=== PATIENT | male | born 1950 | race Caucasian/White ===

== ENCOUNTER → 2018-03-23 | Outpatient (CLI) | payer MEDICARE, OTHER ==
--- NOTE | 2018-03-26 13:59 | US ---
EXAMINATION TYPE: US bladder DATE OF EXAM: 03/23/2018 COMPARISON: NONE CLINICAL HISTORY: R35.1 NOCTURIA. EXAM MEASUREMENTS: Post Void Residual Volume: 10.1 mL Color Doppler performed to assess ureteral jets. Bilateral Jets seen: no Normal Post Void Residual (less than 50ml): yes IMPRESSION: Post void residual is within normal limits.
== END | disposition home or self-care (01) ==
LOC: RADUSWWP 08:50
PROVIDERS: ATTEND Family Medicine
DX: R35.1 Nocturia (principal)
CPT/HCPCS: 76857

== ENCOUNTER 2020-04-24 08:48 | Day surgery (SDC) | payer MEDICARE, OTHER ==
[2020-04-22 14:39] VITALS: BMI 30.4
[~2020-04-24 08:48] MED LIST: LACTATED RINGERS 1,000 ML IV SCH
[2020-04-24 09:27] VITALS: TEMP 98
[2020-04-24] MEDS ORDERED: PROPOFOL 10 MG/ML 20 ML VIAL IV ONE (09:45)
[2020-04-24] MEDS ORDERED: LIDOCAINE 1% INJ 10MG/ML (20 ML MDV) ONE (09:45)
--- NOTE | 2020-04-24 10:02 | P.PCN ---
Date of Procedure: 04/24/20 Procedure(s) Performed: BRIEF HISTORY: Patient is a 68-year-old pleasant white male scheduled for an elective colonoscopy as a part of evaluation of prior history of colon polyps. Last colonoscopy was done in [address] Kelly and was noted to have a tubular adenoma. PROCEDURE PERFORMED: Colonoscopy with biopsy PREOPERATIVE DIAGNOSIS: History of colon polyps. IV sedation per Anesthesia. PROCEDURE: After informed consent was obtained, the patient, was brought into the endoscopy unit. IV sedation was administered by Anesthesia under continuous monitoring. Digital rectal examination was normal. Initially the Olympus CF-160 flexible video colonoscope was then inserted in the rectum, gradually advanced into the cecum without any difficulty. Careful examination was performed as the scope was gradually being withdrawn. Ileocecal valve and the appendiceal orifice were visualized and appeared normal. Prep was excellent. Mucosa of the cecum, ascending colon, transverse colon, descending colon, sigmoid colon, appeared normal. In the mid rectum at 10 cm from the anal verge there was a 3 cm po lypoid ulcerated mass suspicious for neoplasm, status post multiple biopsies. Retroflexion was performed in the rectum and no lesions were seen. The patient tolerated the procedure well. IMPRESSION: 3 cm polypoid ulcerated mass in the midrectum at 10 cm from the anal verge suspicious for neoplasm status post multiple biopsies Scattered left sided diverticulosis RECOMMENDATIONS: Findings of this examination were discussed with the patient as well as his family. He was advised to follow with the biopsy results. He'll be seen in office. In the meantime he'll be set up for a CT of the abdomen and pelvis..
[2020-04-24 10:20] VITALS: BP 132/78; PULSE 50; RESP 16
== END 2020-04-24 10:58 | disposition home or self-care (01) ==
LOC: ORWHC2ENDO 08:48
PROVIDERS: ATTEND Internal Medicine Gastroenterology
DX: K62.1 Rectal polyp (principal); K57.30 Diverticulosis of large intestine without perforation or abscess without bleeding; Z86.010 Personal history of colon polyps; I10 Essential (primary) hypertension; E78.5 Hyperlipidemia, unspecified; Z79.82 Long term (current) use of aspirin; Z79.899 Other long term (current) drug therapy
CPT/HCPCS: 88305; 45380; J2001; J2704

== ENCOUNTER → 2020-05-08 | Outpatient (CLI) | payer MEDICARE, OTHER ==
--- NOTE | 2020-05-08 13:51 | PE ---
EXAMINATION TYPE: PET CT fusion skull to thigh DATE OF EXAM: 05/08/2020 COMPARISON: NONE HISTORY: Malignant tumor of rectum. TECHNIQUE: Following the intravenous administration of 9.56 mCi of F-18 FDG, whole body images are p erformed from the skull base to the midthigh. Images are reviewed on the computer in the coronal, ax ial, and sagittal planes. Reconstructed rotating images are created on independent workstation and r eviewed on the computer. A localization and attenuation correction CT is performed in conjunction w ith the PET scan. SCAN: Initial Scan FINDINGS: SKULL BASE AND NECK: No areas of abnormal hypermetabolic uptake. CHEST, MEDIASTINUM, AND HILAR REGION: No areas of abnormal hypermetabolic uptake. ABDOMEN AND PELVIS: Normal excretion is seen. There is 1.5 cm polypoid mass or mucosal neoplasm in th e left rectum axial image 224, max SUV is 6.56. Craniocaudal Length of lesion roughly 1.5 cm. No juana tional areas of abnormal hypermetabolic uptake. No suspicious adjacent adenopathy. OSSEOUS STRUCTURES: No areas of abnormal hypermetabolic uptake. OTHER CT: Low lung volumes and cardiomegaly. Some calcification at level of the aortic and mitral nomei ves. Posterior mild to moderate bibasilar linear scarring and/or atelectasis. Liver is diffusely low dense consistent with fatty infiltration. Scattered colonic diverticula greate st in the left and sigmoid colon. Scattered bilateral pelvic phleboliths. Surgical changes from left inguinal hernia repair surgery. Multilevel spurring in the spine. Mild calcified plaque of distal abdominal aorta. IMPRESSION: Abnormal uptake corresponding to biopsy-proven malignancy in the rectum. No suspicious ad enopathy or metastatic disease seen.
== END | disposition home or self-care (01) ==
LOC: RADPETMAIN 08:58
PROVIDERS: ATTEND Internal Medicine Gastroenterology
DX: C20 Malignant neoplasm of rectum (principal); R93.3 Abnormal findings on diagnostic imaging of other parts of digestive tract
CPT/HCPCS: 78815; A9552

== ENCOUNTER 2021-08-25 06:54 | Day surgery (SDC) | payer MEDICARE, OTHER ==
[2021-08-23 11:11] VITALS: BMI 27.9
[~2021-08-25 06:54] MED LIST changes: +LIDOCAINE 1% (10MG/ML) FOR IV START INTRADERMA PRN
[2021-08-25 07:31] VITALS: TEMP 97
[2021-08-25] MEDS ORDERED: PROPOFOL 10 MG/ML 20 ML VIAL IV ONE (07:51)
--- NOTE | 2021-08-25 08:09 | P.PCN ---
Date of Procedure: 08/25/21 Procedure(s) Performed: BRIEF HISTORY: Patient is a 70-year-old pleasant white male scheduled for a surveillance colonoscopy as a part of follow-up of rectal cancer that was diagnosed in March of 2020. He underwent robotic low anterior resection with a diverting colostomy followed by reversal and August 2020. He is currently symptomatic other than intermittent rectal discomfort. PROCEDURE PERFORMED: Colonoscopy. PREOPERATIVE DIAGNOSIS: Surveillance of rectal cancer diagnosed in 2020. IV sedation per Anesthesia. PROCEDURE: After informed consent was obtained, the patient, was brought into the endoscopy unit. IV sedation was administered by Anesthesia under continuous monitoring. Digital rectal examination was normal. Initially the Olympus CF-160 flexible video colonoscope was then inserted in the rectum, gradually advanced into the cecum without any difficulty. Careful examination was performed as the scope was gradually being withdrawn. Ileocecal valve and the appendiceal orifice were visualized and appeared normal. Prep was excellent. Mucosa of the cecum, ascending colon, transverse colon, descending colon, sigmoid colon, and rectum appeared normal. The anastomosis and loop was noted at 7 cm from the anal verge which appeared normal. No street identified. Retroflexion was performed in the rectum and no lesions were seen. The patient tolerated the procedure well. IMPRESSION: Normal-appearing colon from rectum to cecum no hence of colorectal neoplasia. Normal-appearing anastomosis at 7 cm from the anal verge RECOMMENDATIONS: Findings of this examination were discussed with the patient as well as his family. He was advised to have a repeat surveillance colonoscopy in 2 years..
[2021-08-25 08:29] VITALS: BP 131/71; PULSE 62; RESP 18
== END 2021-08-25 08:39 | disposition home or self-care (01) ==
LOC: ORWHC2ENDO 06:54
PROVIDERS: ATTEND Internal Medicine Gastroenterology
DX: C20 Malignant neoplasm of rectum (principal); I10 Essential (primary) hypertension; E78.5 Hyperlipidemia, unspecified; M19.90 Unspecified osteoarthritis, unspecified site; Z79.82 Long term (current) use of aspirin; Z79.899 Other long term (current) drug therapy; Z87.891 Personal history of nicotine dependence
CPT/HCPCS: 45378; J2704

== ENCOUNTER → 2021-12-24 | Outpatient (CLI) | payer MEDICARE | END | disposition home or self-care (01) | LOC: LABWHC1 07:04 | PROVIDERS: ATTEND Orthopaedic Surgery | DX: T84.54XA Infection and inflammatory reaction due to internal left knee prosthesis, initial encounter (principal); Z91.09 Other allergy status, other than to drugs and biological substances | CPT/HCPCS: 36415; 82175; 82570; 83655; 83825; 85652; 86140 ==

== ENCOUNTER → 2022-03-02 | Outpatient (CLI) | payer MEDICARE ==
--- NOTE | 2022-03-02 13:37 | NM ---
EXAMINATION TYPE: NM bone 3 phase DATE OF EXAM: 03/02/2022 COMPARISON: NONE HISTORY: Pain Triple phase bone scintigraphy was performed following the injection of 23.0 mCi Tc 99m MDP. Immedia te images and 3 hours post injection images acquired. FINDINGS: There is increased perfusion to the left knee. Photopenic defects to suggest previous arthroplasty. Blood pool images demonstrate increased soft tissue uptake. Delayed images demonstrate increased uptake surrounding the tibial and femoral component of the prost heses. IMPRESSION: 1. Increased perfusion, soft tissue uptake and delayed imaging uptake. Differential diagnosis is infe ction and loosening. Consider tagged WBC study.
== END | disposition home or self-care (01) ==
LOC: RADNMMAIN 07:13
PROVIDERS: ATTEND Orthopaedic Surgery
DX: Z96.652 Presence of left artificial knee joint (principal)
CPT/HCPCS: 78315; A9503

== ENCOUNTER → 2023-04-20 | Outpatient (CLI) | payer MEDICARE ==
--- NOTE | 2023-04-21 11:06 | US ---
EXAMINATION TYPE: US renals and bladder DATE OF EXAM: 04/20/2023 COMPARISON: None CLINICAL INDICATION: Male, 72 years old with history of R35.0 FREQUENCY OF MICTURITION; EXAM MEASUREMENTS: Right Kidney: 11.9 x 5.5 x 4.5 cm Left Kidney: 11.8 x 5.6 x 4.6 cm Post Void Residual Volume: 31.44 ml Right Kidney: No hydronephrosis or masses seen Left Kidney: No hydronephrosis or masses seen Bladder: Anechoic Bilateral Jets seen: Yes Normal Post Void Residual: Yes Incidental echogenic hepatic parenchyma. IMPRESSION: 1. No hydronephrosis. 2. Increased postvoid bladder volume of 31 mL still falls within acceptable limits. 3. Incidental moderate to severe hepatic steatosis. Appropriate clinical management is advised.
== END | disposition home or self-care (01) ==
LOC: RADUSWWP 12:55
PROVIDERS: ATTEND Family Medicine
DX: R35.0 Frequency of micturition (principal); R33.9 Retention of urine, unspecified
CPT/HCPCS: 76770

== ENCOUNTER → 2024-03-08 | Outpatient (CLI) | payer MEDICARE ==
[2024-03-08 10:21] LABS: African American GFR (CKD) 85 (>60 ml/min/1.73 sqM); Blood Urea Nitrogen 15 mg/dL (9-20); Non-African American GFR(CKD) 73 (>60 ml/min/1.73 sqM)
--- NOTE | 2024-03-08 12:07 | CT ---
EXAMINATION TYPE: CT abdomen pelvis w con DATE OF EXAM: 03/08/2024 COMPARISON: Prior PET/CT 2020 CLINICAL INDICATION: Male, 73 years old with history of R079 Chest pain; PHH, ABD PAIN TECHNIQUE: Performed with Oral Contrast and with IV Contrast, patient injected with 100 mL of Isovue 300. CT DLP: 1834.1 mGycm Automated exposure control for dose reduction was used. FINDINGS: LUNG BASES: Mild linear scarring and/or atelectasis in the periphery of the lung bases. LIVER/GB: Liver is heterogeneously hypodense suggesting diffuse fatty infiltrative hepatocellular dis ease. There is a subcentimeter round low dense lesion axial image 21 that is too small to further ch aracterize. PANCREAS: No significant abnormality is seen. SPLEEN: No significant abnormality is seen. ADRENALS: No significant abnormality is seen. KIDNEYS: Retroaortic left renal vein redemonstrated which is normal variant. FREE AIR: No free air is visualized. RETROPERITONEAL ADENOPATHY: None visualized REPRODUCTIVE ORGANS: No significant abnormality is seen URINARY BLADDER: No significant abnormality is seen. PELVIC ADENOPATHY: None visualized. OSSEOUS STRUCTURES: No significant abnormality is seen. BOWEL: Oral contrast reaches level of the rectum. Surgical changes at level of the distal rectum are now present. There is sigmoid colonic diverticulosis. There is no CT evidence for acute diverticulit is. There is no abnormal small or large bowel dilatation. Slightly low-lying cecum into the anterior right mid pelvis axial image 68. OTHER: [id number] calcified plaque of the aorta extends into branch vessels. Surgical change le ft groin region is redemonstrated. IMPRESSION: NO ACUTE FINDING IS SEEN TO ACCOUNT FOR PATIENT'S CLINICAL SYMPTOMS OF PAIN. [facility], , 03/08/2024 12:05 PM
== END | disposition home or self-care (01) ==
LOC: RADCTMAIN 09:43
PROVIDERS: ATTEND Family Medicine
DX: K46.9 Unspecified abdominal hernia without obstruction or gangrene (principal); Z85.038 Personal history of other malignant neoplasm of large intestine
CPT/HCPCS: 82565; 84520; 74177; 36415; Q9967

== ENCOUNTER 2024-05-19 09:06 | Emergency (ER) | payer MEDICARE ==
--- NOTE | 2024-05-19 09:42 | ED ---
General Adult HPI - General Chief complaint: Abdominal Pain Stated complaint: Abd pain Time Seen by Provider: 05/19/24 09:23 Source: patient, family, RN notes reviewed Mode of arrival: ambulatory Limitations: no limitations - History of Present Illness Initial comments: Patient is a 73-year-old male present to the emergency department with concerns with abdominal discomfort. Onset of symptoms was last night when he got up from the couch. Discomfort has been pretty steady since that time. Discomfort rated 8/10. No associated nausea or vomiting, no constipation or diarrhea, no fever. No history of similar symptoms previously. Discomfort is more lower abdomen. - Related Data Home Medications Medication Instructions Recorded Confirmed Aspirin 81 mg PO DAILY 09/25/13 04/03/24 amLODIPine BESYLATE [Norvasc] 10 mg PO HS 09/25/13 04/03/24 Atorvastatin [Lipitor] 10 mg PO HS 12/31/19 04/03/24 Allergies Allergy/AdvReac Type Severity Reaction Status Date / Time No Known Allergies Allergy Verified 05/19/24 09:14 Review of Systems ROS Statement: Those systems with pertinent positive or pertinent negative responses have been documented in the HPI. ROS Other: All systems not noted in ROS Statement are negative. Constitutional: Denies: fever Eyes: Denies: eye pain ENT: Denies: ear pain Gastrointestinal: Reports: abdominal pain. Denies: nausea, vomiting, diarrhea, constipation Genitourinary: Denies: dysuria Musculoskeletal: Denies: back pain Past Medical History Past Medical History: Cancer, Hyperlipidemia, Hypertension, Osteoarthritis (OA) Additional Past Medical History / Comment(s): Hx rectal cancer 2020. History of Any Multi-Drug Resistant Organisms: None Reported Past Surgical History: Bowel Resection, Hernia Repair, Joint Replacement, Orthopedic Surgery Additional Past Surgical History / Comment(s): Varicose veins lasered bilateral legs, Pilonidal cyst removed, bilateral cataracts removed, colostomy with later reversal, left knee replacement. colonoscopy Past Anesthesia/Blood Transfusion Reactions: No Reported Reaction Additional Past Anesthesia/Blood Transfusion Reaction / Comment(s): no blood transfusion Past Psychological History: No Psychological Hx Reported Smoking Status: Former smoker Past Alcohol Use History: Occasional Past Drug Use History: None Reported - Past Family History Mother Family Medical History: No Reported History General Exam Limitations: no limitations General appearance: alert, in no apparent distress Head exam: Present: normocephalic Eye exam: Present: normal appearance Respiratory exam: Present: normal lung sounds bilaterally Cardiovascular Exam: Present: regular rate, normal rhythm Expanded Peripheral pulses: 2+: Posterior Tibialis (R), Posterior Tibialis (L) GI/Abdominal exam: Present: soft, tenderness (Mild diffuse tenderness, more so epigastric and lower, right more than left), normal bowel sounds. Absent: guarding, rebound, rigid, pulsatile mass Extremities exam: Present: normal inspection. Absent: pedal edema, calf tenderness Neurological exam: Present: alert Psychiatric exam: Present: normal affect, normal mood Skin exam: Present: normal color Course Vital Signs 05/19/24 05/19/24 09:09 11:03 Temperature 98.5 F Pulse Rate 88 79 Respiratory 18 18 Rate Blood Pressure 120/75 147/86 O2 Sat by Pulse 94 L 95 Oximetry Medical Decision Making - Medical Decision Making Was pt. sent in by a medical professional or institution (, PA, WOOD PRODUCTS MANUFACTURER, urgent care, hospital, or group home...) When possible be specific @ -No Did you speak to anyone other than the patient for history (EMS, parent, family, police, friend...)? What history was obtained from this source @ -No Did you review nursing and triage notes (agree or disagree)? Why? @ -I reviewed and agree with nursing and triage notes Were old charts reviewed (outside hosp., previous admission, EMS record, old EKG, old radiological studies, urgent care reports/EKG's, group home records)? Report findings @ -No old charts were reviewed Differential Diagnosis (chest pain, altered mental status, abdominal pain women, abdominal pain men, vaginal bleeding, weakness, fever, dyspnea, syncope, headache, dizziness, GI bleed, back pain, seizure, CVA, palpatations, mental health, musculoskeletal)? @ -Differential Abdominal Pain Men: Appendicitis, cholecystitis, diverticulosis, ischemic bowel, pancreatitis, hepatitis, UTI, gastroenteritis, AAA, incarcerated hernia, bowel obstruction, constipation, inflammatory bowel, hepatitis, peptic ulcer disease, splenic infarction, perforated viscus, testicular torsion, this is not meant to be an all-inclusive list EKG interpreted by me (3pts min.). @ -As above X-rays interpreted by me (1pt min.). @ -None done CT interpreted by me (1pt min.). @ -CT scan abdomen pelvis does show some inflammatory changes distal ileum U/S interpreted by me (1pt. min.). @ -None done What testing was considered but not performed or refused? (CT, X-rays, U/S, labs)? Why? @ -None What meds were considered but not given or refused? Why? @ -None Did you discuss the management of the patient with other professionals (professionals i.e. , PA, WOOD PRODUCTS MANUFACTURER, lab, RT, psych nurse, social services specialist, jewelry sales associate, t eacher, chief science officer, director case)? Give summary @ -No Was smoking cessation discussed for >3mins.? @ -No Was critical care preformed (if so, how long)? @ -No Were there social determinants of health that impacted care today? How? (Homelessness, low income, unemployed, alcoholism, drug addiction, transportation, low edu. Level, literacy, decrease access to med. care, fdc, rehab)? @ -No Was there de-escalation of care discussed even if they declined (Discuss DNR or withdrawal of care, Hospice)? DNR status @ -Discussion regarding possible admission however patient refuses What co-morbidities impacted this encounter? (DM, HTN, Smoking, COPD, CAD, Cancer, CVA, ARF, Chemo, Hep., AIDS, mental health diagnosis, sleep apnea, morbid obesity)? @ -None Was patient admitted / discharged? Hospital course, mention meds given and route, prescriptions, significant lab abnormalities, going to OR and other pertinent info. @ -Patient reevaluated and standing comfortably at bedside. Patient is still having some discomfort however states pain medicine did help. Abdomen is soft with still some mild tenderness. Patient would like further medication prior to discharge. Patient does request discharge. There was discussion regarding admission following discussion of results of CT scan. Patient refuses admission and would like to be discharged for follow-up. Return parameters discussed. Undiagnosed new problem with uncertain prognosis? @ -No Drug Therapy requiring intensive monitoring for toxicity (Heparin, Nitro, Insulin, Cardizem)? @ -No Were any procedures done? @ -No Diagnosis/symptom? @ -Ileitis Acute, or Chronic, or Acute on Chronic? @ -Acute Uncomplicated (without systemic symptoms) or Complicated (systemic symptoms)? @ -Default Side effects of treatment? @ -No Exacerbation, Progression, or Severe Exacerbation? @ -No Poses a threat to life or bodily function? How? (Chest pain, [place], [place], pneumonia, PE, COPD, DKA, ARF, appy, cholecystitis, CVA, Diverticulitis, Homicidal, Suicidal, threat to staff... and all critical care pts) @Threat to bowel health - Lab Data Result diagrams: 05/19/24 09:51 05/19/24 09:51 Lab Results 05/19/24 05/19/24 05/19/24 Range/Units 09:51 09:51 09:51 WBC 12.4 H (3.8-10.6) k/uL RBC 4.56 (4.30-5.90) m/uL Hgb 14.7 (13.0-17.5) gm/dL Hct 44.3 (39.0-53.0) % MCV 97.0 (80.0-100.0) fL MCH 32.3 (25.0-35.0) pg MCHC 33.3 (31.0-37.0) g/dL RDW 12.6 (11.5-15.5) % Plt Count 202 (150-450) k/uL MPV 8.0 Neutrophils % 87 % Lymphocytes % 7 % Monocytes % 4 % Eosinophils % 1 % Basophils % 0 % Neutrophils # 10.8 H (1.3-7.7) k/uL Lymphocytes # 0.8 L (1.0-4.8) k/uL Monocytes # 0.5 (0-1.0) k/uL Eosinophils # 0.1 (0-0.7) k/uL Basophils # 0.0 (0-0.2) k/uL PT 11.3 (10.0-12.5) sec INR 1.0 (<1.2) APTT 21.7 L (22.0-30.0) sec Sodium 136 L (137-145) mmol/L Potassium 4.8 (3.5-5.1) mmol/L Chloride 105 (98-107) mmol/L Carbon Dioxide 20 L (22-30) mmol/L Anion Gap 11 mmol/L BUN 14 (9-20) mg/dL Creatinine 0.90 (0.66-1.25) mg/dL Est GFR (CKD-EPI)AfAm >90 (>60 ml/min/1.73 sqM) Est GFR (CKD-EPI)NonAf 83 (>60 ml/min/1.73 sqM) Glucose 160 H (74-99) mg/dL Calcium 9.4 (8.4-10.2) mg/dL Total Bilirubin 1.5 H (0.2-1.3) mg/dL AST 41 (17-59) U/L ALT 61 H (4-49) U/L Alkaline Phosphatase 48 (38-126) U/L Total Protein 7.8 (6.3-8.2) g/dL Albumin 4.6 (3.5-5.0) g/dL Amylase 46 (30-110) U/L Lipase 73 (23-300) U/L Disposition Clinical Impression: Ileitis Disposition: HOME SELF-CARE Condition: Stable Instructions (If sedation given, give patient instructions): Irritable Bowel Sy ndrome (ED), Enteritis (ED) Additional Instructions: Please do follow-up with your primary care physician being of the week. Also consider surgery and GI follow-up. Return for increased pain, fevers, worsening symptoms or other concerns. Is patient prescribed a controlled substance at d/c from ED?: No Referrals: Jose Haji MD [Primary Care Provider] - 1-2 days Jennifer Pack MD [STAFF PHYSICIAN] - 1-2 days Josh Aguilar DO [Doctor of Osteopathic Medicine] - 1-2 days Time of Disposition: 12:25
[2024-05-19 10:21] LABS: Basophils % (A) 0 %; Eosinophils # (A) 0.1 k/uL (0-0.7); Eosinophils % (A) 1 %; HCT 44.3 % (39.0-53.0); HGB 14.7 gm/dL (13.0-17.5); Lymphocytes # (A) 0.8 k/uL (1.0-4.8); Lymphocytes % (A) 7 %; MCH 32.3 pg (25.0-35.0); MCHC 33.3 g/dL (31.0-37.0); Monocytes # (A) 0.5 k/uL (0-1.0); Monocytes % (A) 4 %; Neutrophils # (A) 10.8 k/uL (1.3-7.7); Neutrophils % (A) 87 %; Platelet Count 202 k/uL (150-450); RBC 4.56 m/uL (4.30-5.90); RDW 12.6 % (11.5-15.5); WBC 12.4 k/uL (3.8-10.6)
[2024-05-19 10:32] LABS: ALT 61 U/L (4-49); African American GFR (CKD) >90 (>60 ml/min/1.73 sqM); Albumin 4.6 g/dL (3.5-5.0); Amylase 46 U/L (30-110); Anion Gap 11 mmol/L; Blood Urea Nitrogen 14 mg/dL (9-20); Calcium 9.4 mg/dL (8.4-10.2); Carbon Dioxide 20 mmol/L (22-30); Chloride 105 mmol/L (98-107); Glucose 160 mg/dL (74-99); Lipase 73 U/L (23-300); Non-African American GFR(CKD) 83 (>60 ml/min/1.73 sqM); Sodium 136 mmol/L (137-145); Total Bilirubin 1.5 mg/dL (0.2-1.3); Total Protein 7.8 g/dL (6.3-8.2)
[2024-05-19 10:37] LABS: Prothrombin Time 11.3 sec (10.0-12.5)
[2024-05-19 10:38] LABS: Partial Thromboplastin Time 21.7 sec (22.0-30.0)
[2024-05-19 10:40] LABS: AST 41 U/L (17-59); Alkaline Phosphatase 48 U/L (38-126); Potassium 4.8 mmol/L (3.5-5.1)
[2024-05-19] MEDS: FAMOTIDINE 20 MG/2 ML VIAL IV STA (11:04)
[2024-05-19] MEDS: HYDROmorphone 1 MG/ML 1 ML SYRINGE IVP STA (11:04)
--- NOTE | 2024-05-19 12:01 | CT ---
EXAMINATION TYPE: CT abdomen pelvis w con DATE OF EXAM: 05/19/2024 COMPARISON: Prior CT March 08, 2024 CLINICAL INDICATION: Male, 73 years old with history of abdominal pain, ABDOMINAL PAIN, TECHNIQUE: CT scan of the abdomen and pelvis is performed with IV Contrast, patient injected with 100 ML mL of I sovue 300., (none if empty) Oral contrast used: without Oral Contrast (none if empty) CT DLP: 1796.8 mGycm, Automated exposure control for dose reduction was used. FINDINGS: LUNG BASES: Mild to moderate left greater than right bibasilar linear scarring is redemonstrated. LIVER/GB: Liver is heterogeneously hypodense consistent with diffuse fatty infiltrative hepatocellula r disease. Stable subcentimeter low-density round lesion axial image 18 presumed benign. PANCREAS: No significant abnormality is seen. SPLEEN: No significant abnormality is seen. ADRENALS: No significant abnormality is seen. KIDNEYS: Central small thin-walled parapelvic cysts bilaterally are redemonstrated. No hydronephrosis seen bilaterally. BOWEL: Surgical changes anterior right mid abdominal small bowel loop redemonstrated. No abnormal sma ll or large bowel dilatation. Some distal colonic diverticula. No CT evidence for acute diverticuliti s. Low-lying cecum into the anterior right pelvis is redemonstrated. At this level level there is mil d ill-defined fluid and fat stranding and slightly prominent fluid-filled small bowel loops. No well- formed fluid collection or abscess. No free air. PROSTATE/SEMINAL VESICLES: No gross abnormality seen. LYMPH NODES: No greater than 1cm abdominal or pelvic lymph nodes are appreciated. OSSEOUS STRUCTURES: Multilevel spurring in the thoracic spine is redemonstrated. OTHER: Small to moderate-sized fat-containing bilateral inguinal hernias are redemonstrated. IMPRESSION: Mild inflammatory change in the region of the terminal ileum is felt present affecting ce cum and nearby small bowel loops. Correlate clinically. [facility], , 05/19/2024 11:58 AM
[2024-05-19] MEDS: HYDROmorphone 0.5 MG/0.5 ML SYRINGE IVP STA (12:49)
[2024-05-19] MEDS: DICYCLOMINE 10 MG/ML 2 ML AMP IM STA (12:50)
[2024-05-19 12:55] VITALS: BP 129/82; PULSE 81; RESP 16; TEMP 98.2
== END 2024-05-19 12:55 | disposition home or self-care (01) ==
LOC: EC 09:06
DX: K52.9 Noninfective gastroenteritis and colitis, unspecified (principal); Z87.891 Personal history of nicotine dependence
CPT/HCPCS: 36415; 80053; 82150; 83690; 85025; 85610; 85730; 74177; 99284; 96372; 96374; 96375; J0500; J3490; J1171 ×2; Q9967